=== PATIENT | female | born 1980 | race African-American/Black ===

== ENCOUNTER 2018-04-03 10:18 | Emergency (ER) | END 2018-04-03 14:55 | disposition home or self-care (01) ==

== ENCOUNTER 2018-04-05 15:29 | Emergency (ER) | END 2018-04-05 20:09 | disposition home or self-care (01) ==

== ENCOUNTER 2019-06-16 08:54 | Emergency (ER) | payer OTHER ==
[~2019-06-16] VITALS: Wt 90.0 kg
[~2019-06-16 08:54] MED LIST: CEPH-443 PO; NAPR-985 PO; ONDA4TAB14 PO
[2019-06-16 12:16] VITALS: BP 135/74; PULSE 66; RESP 18
== END 2019-06-16 12:17 | disposition home or self-care (01) ==
LOC: FTE 08:54
DX: R10.32 Left lower quadrant pain (principal); F17.210 Nicotine dependence, cigarettes, uncomplicated; R10.2 Pelvic and perineal pain
CPT/HCPCS: 76830; 76856; 81003; 81025